=== PATIENT | female | born 2000 | race Caucasian/White ===

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

== ENCOUNTER 2023-04-24 23:02 | Emergency (ER) | payer OTHER ==
[2023-04-25] MEDS ORDERED: ACETAMINOPHEN 500 MG TAB ONE (00:21)
[2023-04-25] MEDS ORDERED: IBUPROFEN 400 MG TAB ONE (00:21)
--- NOTE | 2023-04-25 01:29 | ER ---
Nurse's Notes [facility] Name: Melissa Butt Age: 23 yrs Sex: Female : 2000 Arrival Date: 04/24/2023 Time: 23:02 Bed 6 Private MD: Diagnosis: Contusion of left wrist Presentation: 04/25 00:17 Chief complaint: Patient states: States hit left wrist on table on Wednesday, pt states ll3 pain has gotten worse since, c/o pain to left wrist 02/03. Coronavirus screen: Vaccine status: Patient reports receiving the 2nd dose of the covid vaccine. At this time, the client does not indicate any symptoms associated with coronavirus-19. Ebola Screen: No symptoms or risks identified at this time. Initial Sepsis Screen: Does the patient meet any 2 criteria? No. Patient's initial sepsis screen is negative. Does the patient have a suspected source of infection? No. Patient's initial sepsis screen is negative. Risk Assessment: Do you want to hurt yourself or someone else? Patient reports no desire to harm self or others. Onset of symptoms was April 20, 2023. Care prior to arrival: None. 00:17 Method Of Arrival: Ambulatory ll3 00:17 Acuity: KAR 4 ll3 Triage Assessment: 00:19 General: Appears comfortable, Behavior is calm, cooperative. Pain: Complains of pain in ll3 dorsal aspect of left wrist Pain does not radiate. Pain currently is 5 out of 10 on a pain scale. Pain began Wednesday. Derm: Skin is pink, warm \T\ dry. Bruising that is dark purple, on dorsal aspect of left wrist. Musculoskeletal: Circulation, motion, and sensation intact. Reports pain in dorsal aspect of left wrist. 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 - Social history:: Smoking status: Reported history of juuling and/or vaping. Screenin:21 [facility] ED Fall Risk Assessment (Adult) History of falling in the last 3 months, ll3 including since admission No falls in past 3 months (0 pts) Confusion or Disorientation No (0 pts) Intoxicated or Sedated No (0 pts) Impaired Gait No (0 pts) Mobility Assist Device Used No (0 pt) Altered Elimination No (0 pt) Score/Fall Risk Level 0 - 2 = Low Risk Oriented to surroundings, Maintained a safe environment, Educated pt \T\ family on fall prevention, incl call for assistance when getting out of bed. Abuse screen: Denies threats or abuse. Denies injuries from another. Nutritional screening: No deficits noted. Tuberculosis screening: No symptoms or risk factors identified. Assessment: 00:19 General: See triage assessment. ll3 Vital Signs: 00:17 BP 107 / 69; Pulse 60; Resp 16; Temp 97.5(O); Pulse Ox 100% on R/A; Weight 122.47 kg ll3 (R); Height 5 ft. 8 in. (R); Pain 5/10; 00:17 Body Mass Index 41.05 (122.47 kg, 172.72 cm) ll3 00:17 Pain Scale: Adult ll3 ED Course: 04/24 23:07 Patient arrived in ED. ag3 23:08 Valentin Mckinley PA is PHCP. cp 23:08 Chino Maya MD is Attending Physician. cp 04/25 00:16 XRAY Wrist LEFT 3 view In Process Unspecified. EDMS 00:19 Triage completed. ll3 00:19 Arm band placed on Patient placed in an exam room, on a stretcher, on pulse oximetry. ll3 00:21 Patient has correct armband on for positive identification. Bed in low position. Call ll3 light in reach. Side rails up X 1. Adult w/ patient. 01:35 No provider procedures requiring assistance completed. Patient did not have IV access ll3 during this emergency room visit. Administered Medications: 00:17 Drug: Ibuprofen PO 800 mg Route: PO; ll3 01:35 Follow up: Response: No adverse reaction; Pain is decreased ll3 00:17 Drug: Acetaminophen PO 1000 mg Route: PO; ll3 01:35 Follow up: Response: No adverse reaction; Pain is decreased ll3 Medication: 01:36 VIS not applicable for this client. ll3 Outcome: :29 Discharge ordered by . cp 01:35 Discharged to home ambulatory, with friend. ll3 01:35 Condition: stable 01:35 Discharge instructions given to patient, friend, Instructed on discharge instructions, follow up and referral plans. medication usage, Demonstrated understanding of instructions, follow-up care, medications, Prescriptions given X 1. 01:36 Patient left the ED. ll3 Signatures: Dispatcher [employer] EDMS Valentin Mckinley PA PA cp Gomez, Alice 3 Lv Barnhart RN RN ll3 Corrections: (The following items were deleted from the chart) 00:21 00:21 General: See triage assessment. ll3 ll3
--- NOTE | 2023-04-25 01:30 | EDPHYS ---
Physician Documentation [facility] Name: Melissa Butt Age: 23 yrs Sex: Female : 2000 Arrival Date: 04/24/2023 Time: 23:02 Bed 6 Private MD: ED Physician Chino Maya HPI: 04/24 23:30 This 23 yrs old Female presents to ER via Ambulatory with complaints of Wrist Pain. cp 23:30 The patient or guardian reports injury, pain. Onset: The symptoms/episode cp began/occurred 4 day(s) ago. Associated signs and symptoms: The patient has no apparent associated signs or symptoms. Patient is a 24-year-old female who presents to the emergency department with complaints of left wrist pain. Patient reports she was at work this past Wednesday when she accidentally struck her left wrist against a table causing injury. She has been wearing a brace but reports pain has been gradually worsening. Has not seen a provider since injury. 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 - Social history:: Smoking status: Reported history of juuling and/or vaping. ROS: 04/24 23:35 Constitutional: Negative for body aches, chills, fever. cp Respiratory: Negative for cough, shortness of breath, wheezing. Abdomen/GI: Negative for abdominal pain, nausea, vomiting, and diarrhea. MS/extremity: Positive for pain, swelling, tenderness, of the left wrist, Negative for decreased range of motion, deformity, paresthesias. Skin: Negative for rash. Neuro: Negative for numbness, weakness. All other systems are negative. Exam: 23:40 Constitutional: The patient appears in no acute distress, alert, awake, non-toxic, well cp developed, well nourished, obese. 23:40 Head/Face: Normocephalic, atraumatic. cp 23:40 Chest/axilla: Inspection: normal. 23:40 Cardiovascular: Rate: normal, Pulses: Pulses are 2+ in left radial artery. 23:40 Respiratory: the patient does not display signs of respiratory distress, Respirations: normal, no use of accessory muscles, no retractions. 23:40 Abdomen/GI: Inspection: abdomen appears normal. 23:40 Back: pain, is absent. 23:40 Musculoskeletal/extremity: Joints: All joints are normal except the left wrist displays Mild swelling, ecchymosis and tenderness to palpation noted along medial aspect of left wrist. Pain with passive range of motion but no restriction and no deformities noted. Patient has good sensation to touch throughout the extremity is vascularly intact. Vital Signs: 04/25 00:17 BP 107 / 69; Pulse 60; Resp 16; Temp 97.5(O); Pulse Ox 100% on R/A; Weight 122.47 kg ll3 (R); Height 5 ft. 8 in. (R); Pain 5/10; 00:17 Body Mass Index 41.05 (122.47 kg, 172.72 cm) ll3 00:17 Pain Scale: Adult ll3 MDM: 04/24 23:20 Patient medically screened. 04/25 00:00 Differential diagnosis: dislocation, closed fracture, contusion, tendonitis. 01:29 Data reviewed: vital signs, nurses notes, radiologic studies, plain films. 01:29 I considered the following discharge prescriptions or medication management in the emergency department Medications were administered in the Emergency Department. See MAR. Care significantly affected by the following chronic conditions: Obesity. Counseling: I had a detailed discussion with the patient and/or guardian regarding: the historical points, exam findings, and any diagnostic results supporting the discharge/admit diagnosis, radiology results, to return to the emergency department if symptoms worsen or persist or if there are any questions or concerns that arise at home. Response to treatment: the patient's symptoms have mildly improved after treatment, and as a result, I will discharge patient. 04/25 00:01 Order name: XRAY Wrist LEFT 3 view cp Administered Medications: 00:17 Drug: Ibuprofen PO 800 mg Route: PO; ll3 01:35 Follow up: Response: No adverse reaction; Pain is decreased ll3 00:17 Drug: Acetaminophen PO 1000 mg Route: PO; ll3 01:35 Follow up: Response: No adverse reaction; Pain is decreased ll3 Disposition Summary: 04/25/23 01:29 Discharge Ordered Location: Home cp Problem: new cp Symptoms: have improved cp Condition: Stable cp Diagnosis - Contusion of left wrist cp Followup: cp - With: Private Physician - When: 1 week - Reason: Recheck today's complaints Discharge Instructions: - Discharge Summary Sheet cp - Contusion cp Forms: - Medication Reconciliation Form cp - Thank You Letter cp - Antibiotic Education cp - Prescription Opioid Use cp - Patient Portal Instructions cp Prescriptions: - Naprosyn 500 mg Oral Tablet - take 1 tablet by ORAL route 2 times per day take with food; 20 tablet; Refills: cp 0, Product Selection Permitted Addendum: 04/26/2023 02:27 Co-signature as Attending Physician, Chino Maya MD I agree with the assessment s p4 and plan of care. I reviewed the patient's care provided by the Advanced Practice Provider and agree with the diagnosis and treatment plan. Signatures: Dispatcher [employer] EDValentin Rosas PA PA cp Loubet, Lynsea, RN RN ll3 Chino Maya MD MD sp4
[2023-04-25 01:40] VITALS: BP 107/69; TEMP 97.5; O2SAT 100
--- NOTE | 2023-04-25 19:34 | RAD REPORT ---
EXAM DESCRIPTION: RAD - Wrist Left 3 View - 04/25/2023 12:14 am CLINICAL HISTORY: The patient is 23 years old and is Female; PAIN TECHNIQUE: Frontal, lateral and oblique views of the left wrist. COMPARISON: No relevant prior studies available. FINDINGS: BONES/JOINTS: Unremarkable. No acute fracture. No dislocation. SOFT TISSUES: Unremarkable. No radiopaque foreign body. IMPRESSION: Normal left wrist radiographs. Electronically signed by: Anuradha Keyes MD 04/25/2023 1:22 AM CDT Due to temporary technical issues with the PACS/Fluency reporting system, reports are being signed by the in house radiologists without review as a courtesy to insure prompt reporting. The interpreting radiologist is fully responsible for the content of the report.
== END 2023-04-25 01:36 | disposition home or self-care (01) ==
LOC: ER 23:02
DX: S60.212A Contusion of left wrist, initial encounter (principal)
CPT/HCPCS: 99283